=== PATIENT | male | born 1995 | race Caucasian/White ===

== ENCOUNTER 2017-10-28 12:24 | Emergency (ER) | payer SELFPAY ==
[~2017-10-28] VITALS: Ht 162.6 cm; Wt 64.5 kg
[2017-10-28 13:30] VITALS: BP 151/77
[2017-10-28] MEDS ORDERED: PERTUSS(ACELL),DIPH,TET VAC/PF 0.5 ML VIAL IM ONE (13:45)
[2017-10-28] MEDS ORDERED: IBUPROFEN 600 MG TABLET PO ONE (13:45)
[2017-10-28] MEDS ORDERED: CIPROFLOXACIN HCL 250 MG TABLET PO ONE (13:45)
[2017-10-28] MEDS ORDERED: BACITRACIN 0.9 GM PACKET OINTMENT TP ONE (13:45)
== END 2017-10-28 14:02 | disposition home or self-care (01) ==
LOC: EMS 12:25
DX: S91.332A Puncture wound without foreign body, left foot, initial encounter (principal); R03.0 Elevated blood-pressure reading, without diagnosis of hypertension; W45.0XXA Nail entering through skin, initial encounter; Y93.89 Activity, other specified; Y92.89 Other specified places as the place of occurrence of the external cause; Y99.8 Other external cause status
CPT/HCPCS: 90471; 90715; 99284